=== PATIENT | female | born 1985 | race American Indian/Alaskan Native ===

== ENCOUNTER 2021-02-06 20:47 | Emergency (ER) | payer MEDICAID, OTHER ==
[2021-02-06] MEDS ORDERED: levETIRAcetam 1000 MG/NS 0.75% 1,000 MG/100 ML BAG IV NR (20:56)
[2021-02-06] MEDS ORDERED: SODIUM CHLORIDE 0.9% 1000 ML 1,000 ML IV ONE (20:56)
--- NOTE | 2021-02-06 20:57 | Emergency Department Report ---
ED General Adult HPI - General Chief complaint: Alcohol Stated complaint: alcohol PUI?: No Time Seen by Provider: 02/06/21 20:55 Source: patient, family Mode of arrival: Ambulatory Limitations: Other (Patient is intoxicated. Patient is incapacitated.) - History of Present Illness Initial comments: The patient is a 35-year-old female. She is not known to myself previously. She is brought to the hospital by a family member. Most of the history is obtained by speaking to her mother, Ms Jasmyne Zafar; [phone] As per her mother, the patient has a history of alcohol abuse and incapacitation. Patient may also have a history of seizure, the patient's mother is not for sure. The patient's mother reports to me that the patient presented to the mother's house today, initially with a complaint of side pain. Apparently, the patient may have had a seizure, it is unknown if the patient fell or hit her head. The mother brought the patient here to the emergency room for evaluation. In the car, the patient reportedly had another seizure or convulsive event, and was brought back to this emergency room immediately. When I evaluated the patient, the patient is awake, breathing spontaneously, with an appropriate Accu-Chek. She is protecting her airway. The patient smells of alcohol, and is incapacitated. She states that she has "autoimmune pain", but she cannot tell me if she fell or hit her head or neck. The patient is currently drunk, not able to describe the qualitative nature of symptoms, exacerbating factors, relieving factors or aggravating factors. Patient agitated, pulling off leads and trying to remove IV, and trying to move. The patient does not have decision-making capacity at this time, as she is intoxicated. I discussed this with the patient's mother. Patient's mother provided consent for physical and or chemical restraint if necessary. The patient is subsequently placed on 2012 by myself. While in the emergency room, patient also medicated with fluids, Keppra, and medicated with haloperidol. -: unknown - Related Data Previous Rx's Medication Instructions Recorded Last Taken Type Multivitamin with Folic Acid [[facility] 400 mcg PO QDAY #30 tablet 02/07/21 Unknown Rx One Daily Essential Tablet] Nitrofurantoin [place]/M-Cryst 100 mg PO Q12HR #14 capsule 02/07/21 Unknown Rx [Macrobid CAP] chlordiazePOXIDE [Librium] 25 mg PO Q6H PRN #25 capsule 02/07/21 Unknown Rx levETIRAcetam [Keppra TAB] 500 mg PO BID #60 tablet 02/07/21 Unknown Rx Allergies Allergy/AdvReac Type Severity Reaction Status Date / Time No Known Allergies Allergy Verified 02/06/21 21:30 ED Review of Systems ROS: Stated complaint: INTENSE PAIN Other details as noted in HPI Comment: Unobtainable due to pts medical conditions ED Past Medical Hx - Medications Home Medications: Home Medications Medication Instructions Recorded Confirmed Last Taken Type Multivitamin with Folic Acid [[facility] 400 mcg PO QDAY #30 tablet 02/07/21 Unknown Rx One Daily Essential Tablet] Nitrofurantoin [place]/M-Cryst 100 mg PO Q12HR #14 capsule 02/07/21 Unknown Rx [Macrobid CAP] chlordiazePOXIDE [Librium] 25 mg PO Q6H PRN #25 capsule 02/07/21 Unknown Rx levETIRAcetam [Keppra TAB] 500 mg PO BID #60 tablet 02/07/21 Unknown Rx ED Physical Exam - General Limitations: Altered Mental Status (The patient is intoxicated) General appearance: appears intoxicated - Head Head exam: Present: atraumatic, normocephalic - Eye Eye exam: Present: normal appearance, EOMI. Absent: nystagmus - ENT ENT exam: Present: normal exam, normal orophraynx, mucous membranes moist, normal external ear exam - Neck Neck exam: Present: normal inspection, full ROM. Absent: tenderness, meningismus - Respiratory Respiratory exam: Present: normal lung sounds bilaterally. Absent: respiratory distress, wheezes, rales, rhonchi, stridor, decreased breath sounds - Cardiovascular Cardiovascular Exam: Present: regular rate, normal rhythm, normal heart sounds. Absent: bradycardia, tachycardia, irregular rhythm, systolic murmur, diastolic murmur, rubs, gallop - GI/Abdominal GI/Abdominal exam: Present: soft. Absent: distended, tenderness, guarding, rebound, rigid, pulsatile mass - Extremities Exam Extremities exam: Present: normal inspection, full ROM, other (2+ pulses noted in the bilateral upper and lower extremities. There is no palpable cord. negative Homans sign. Muscular compartments are soft. The pelvis is stable.). Absent: pedal edema, calf tenderness - Back Exam Back exam: Present: normal inspection. Absent: tenderness, CVA tenderness (R), CVA tenderness (L), paraspinal tenderness, vertebral tenderness - Neurological Exam Neurological exam: Present: altered, abnormal gait (The patient walks with an unsteady gait), other (There is no facial droop. The tongue is midline. EOMI. 5 out of 5 strength in 4 extremities.) - Psychiatric Psychiatric exam: Present: agitated - Skin Skin exam: Present: warm, dry, intact, normal color. Absent: rash ED Course Vital Signs 02/06/21 02/06/21 02/06/21 21:52 22:19 22:20 Temperature Pulse Rate 91 H 99 H Respiratory 20 16 Rate Blood Pressure 109/65 Blood Pressure [Right] O2 Sat by Pulse 95 Oximetry 02/06/21 02/06/21 02/06/21 22:30 23:26 23:30 Temperature Pulse Rate 98 H 107 H Respiratory 13 26 H Rate Blood Pressure 119/94 Blood Pressure [Right] O2 Sat by Pulse 100 95 98 Oximetry 02/06/21 02/07/21 02/07/21 23:35 00:10 00:14 Temperature 97.9 F Pulse Rate 97 H 83 Respiratory 20 19 Rate Blood Pressure 92/61 92/61 Blood Pressure [Right] O2 Sat by Pulse 100 96 Oximetry 02/07/21 02/07/21 02/07/21 03:00 03:30 03:42 Temperature Pulse Rate 66 84 66 Respiratory 13 14 12 Rate Blood Pressure 87/59 87/59 87/59 Blood Pressure [Right] O2 Sat by Pulse Oximetry 02/07/21 02/07/21 02/07/21 03:48 04:30 04:40 Temperature Pulse Rate 74 80 85 Respiratory 13 12 13 Rate Blood Pressure 81/51 92/57 92/57 Blood Pressure [Right] O2 Sat by Pulse 97 100 Oximetry 02/07/21 07:00 Temperature Pulse Rate 94 H Respiratory 11 L Rate Blood Pressure Blood Pressure 93/57 [Right] O2 Sat by Pulse 98 Oximetry - Reevaluation(s) Reevaluation #1: 02/06/21 23:38 Differential diagnosis, including but not limited to: Intracranial injury, cervical spine injury, seizure, conversion disorder, electrolyte derangement, urinary tract infection, pneumonia, renal colic, constipation Assessment and plan: 35-year-old female, who has reassuring vital signs, but is floridly intoxicated, and lacks decision-making capacity. She reportedly had convulsions, and then immediately wakes up, but but is incoherent and nonsensical. The patient is placed on 2012 for alcohol intoxication, and lack of decision-making capacity. Her mother provided consent for chemical and/or physical restraint if necessary. Mother endorses that the patient does this quite often. The patient is not threatening homicidal or suicidal ideation, and she is now appropriately deescalated. Noncontrast CT scan of the brain, cervical spine, abdomen pelvis ordered. There is no abdominal tenderness, rebound or guarding. There is no abdominal ecchymosis. I think appendicitis is very unlikely. Continue supportive care, monitor for sobriety, reassess after diagnostics have resulted. Discussed this with the mother. She articulated understanding 02/07/21 00:[address] scan of the brain, cervical spine abdomen pelvis negative for acute findings. Pancreatic pseudocyst appreciated. Patient resting comfortably at this time in no acute distress. Reassess when clinically sober. I called patients mother to update her Discussed all findings with her. She articulated understanding care will transferred to the overnight provider to reassess and discharge when clinically sober 02/07/21 00:12 02/10/21 04:21 ED Medical Decision Making - Lab Data Result diagrams: 02/06/21 21:05 02/06/21 21:05 Vital Signs 02/06/21 02/06/21 02/06/21 21:52 22:19 22:20 Temperature Pulse Rate 91 H 99 H Respiratory 20 16 Rate Blood Pressure 109/65 O2 Sat by Pulse 95 Oximetry 02/06/21 02/06/21 02/06/21 22:30 23:26 23:30 Temperature Pulse Rate 98 H 107 H Respiratory 13 26 H Rate Blood Pressure 119/94 O2 Sat by Pulse 100 95 98 Oximetry 02/06/21 23:35 Temperature 97.9 F Pulse Rate Respiratory Rate Blood Pressure O2 Sat by Pulse Oximetry Lab Results 02/06/21 02/06/21 02/06/21 Range/Units 20:54 20:54 21:05 WBC 4.5 (4.5-11.0) K/mm3 RBC 3.52 L (3.65-5.03) M/mm3 Hgb 12.7 (10.1-14.3) gm/dl Hct 37.4 (30.3-42.9) % MCV 106 H (79-97) fl MCH 36 H (28-32) pg MCHC 34 (30-34) % RDW 15.5 H (13.2-15.2) % Plt Count 318 (140-440) K/mm3 Lymph % (Auto) 38.2 H (13.4-35.0) % [place] % (Auto) 11.3 H (0.0-7.3) % Eos % (Auto) 0.8 (0.0-4.3) % Baso % (Auto) 0.9 (0.0-1.8) % Lymph # (Auto) 1.7 (1.2-5.4) K/mm3 [place] # (Auto) 0.5 (0.0-0.8) K/mm3 Eos # (Auto) 0.0 (0.0-0.4) K/mm3 Baso # (Auto) 0.0 (0.0-0.1) K/mm3 Seg Neutrophils % 48.8 (40.0-70.0) % Seg Neutrophils # 2.2 (1.8-7.7) K/mm3 Sodium (137-145) mmol/L Potassium (3.6-5.0) mmol/L Chloride (98-107) mmol/L Carbon Dioxide (22-30) mmol/L Anion Gap mmol/L BUN (7-17) mg/dL Creatinine (0.6-1.2) mg/dL Estimated GFR ml/min BUN/Creatinine Ratio % Glucose (65-100) mg/dL Calcium (8.4-10.2) mg/dL Magnesium (1.7-2.3) mg/dL Total Bilirubin (0.1-1.2) mg/dL AST (5-40) units/L ALT (7-56) units/L Alkaline Phosphatase (35-129) units/L Total Creatine Kinase (30-135) units/L Total Protein (6.3-8.2) g/dL Albumin (3.9-5) g/dL Albumin/Globulin Ratio % HCG, Quant (0-4) mIU/mL Urine Color Yellow (Yellow) Urine Turbidity Slightly-cloudy (Clear) Urine pH 5.0 (5.0-7.0) Ur Specific [place] 1.010 (1.003-1.030) Urine Protein <15 mg/dl (Negative) mg/dL Urine Glucose (UA) Neg (Negative) mg/dL Urine Ketones Neg (Negative) mg/dL Urine Blood Mod (Negative) Urine Nitrite Pos (Negative) Urine Bilirubin Neg (Negative) Urine Urobilinogen < 2.0 (<2.0) mg/dL Ur Leukocyte Esterase Sm (Negative) Urine WBC (Auto) 9.0 H (0.0-6.0) /HPF Urine RBC (Auto) 2.0 (0.0-6.0) /HPF U Epithel Cells (Auto) 10.0 (0-13.0) /HPF Salicylates (2.8-20.0) mg/dL Urine Opiates Screen Negative Urine Methadone Screen Negative Acetaminophen (10.0-30.0) ug/mL Ur Barbiturates Screen Negative Ur Phencyclidine Scrn Negative Ur Amphetamines Screen Negative U Benzodiazepines Scrn Negative Urine Cocaine Screen Negative U Marijuana (THC) Screen Negative Drugs of Abuse Note Disclamer Plasma/Serum Alcohol (0-0.07) % 02/06/21 02/06/21 02/06/21 Range/Units 21:05 21:05 21:05 WBC (4.5-11.0) K/mm3 RBC (3.65-5.03) M/mm3 Hgb (10.1-14.3) gm/dl Hct (30.3-42.9) % MCV (79-97) fl MCH (28-32) pg MCHC (30-34) % RDW (13.2-15.2) % Plt Count (140-440) K/mm3 Lymph % (Auto) (13.4-35.0) % [place] % (Auto) (0.0-7.3) % Eos % (Auto) (0.0-4.3) % Baso % (Auto) (0.0-1.8) % Lymph # (Auto) (1.2-5.4) K/mm3 [place] # (Auto) (0.0-0.8) K/mm3 Eos # (Auto) (0.0-0.4) K/mm3 Baso # (Auto) (0.0-0.1) K/mm3 Seg Neutrophils % (40.0-70.0) % Seg Neutrophils # (1.8-7.7) K/mm3 Sodium 145 (137-145) mmol/L Potassium 5.0 (3.6-5.0) mmol/L Chloride 103.2 (98-107) mmol/L Carbon Dioxide 26 (22-30) mmol/L Anion Gap 21 mmol/L BUN 6 L (7-17) mg/dL Creatinine 0.5 L (0.6-1.2) mg/dL Estimated GFR > 60 ml/min BUN/Creatinine Ratio 12 % Glucose 104 H (65-100) mg/dL Calcium 9.3 (8.4-10.2) mg/dL Magnesium 2.00 (1.7-2.3) mg/dL Total Bilirubin 0.20 (0.1-1.2) mg/dL AST 88 H (5-40) units/L ALT 26 (7-56) units/L Alkaline Phosphatase 114 (35-129) units/L Total Creatine Kinase 113 (30-135) units/L Total Protein 7.9 (6.3-8.2) g/dL Albumin 4.4 (3.9-5) g/dL Albumin/Globulin Ratio 1.3 % HCG, Quant < 2 (0-4) mIU/mL Urine Color (Yellow) Urine Turbidity (Clear) Urine pH (5.0-7.0) Ur Specific [place] (1.003-1.030) Urine Protein (Negative) mg/dL Urine Glucose (UA) (Negative) mg/dL Urine Ketones (Negative) mg/dL Urine Blood (Negative) Urine Nitrite (Negative) Urine Bilirubin (Negative) Urine Urobilinogen (<2.0) mg/dL Ur Leukocyte Esterase (Negative) Urine WBC (Auto) (0.0-6.0) /HPF Urine RBC (Auto) (0.0-6.0) /HPF U Epithel Cells (Auto) (0-13.0) /HPF Salicylates < 0.3 L (2.8-20.0) mg/dL Urine Opiates Screen Urine Methadone Screen Acetaminophen (10.0-30.0) ug/mL Ur Barbiturates Screen Ur Phencyclidine Scrn Ur Amphetamines Screen U Benzodiazepines Scrn Urine Cocaine Screen U Marijuana (THC) Screen Drugs of Abuse Note Plasma/Serum Alcohol (0-0.07) % 02/06/21 02/06/21 Range/Units 21:05 21:05 WBC (4.5-11.0) K/mm3 RBC (3.65-5.03) M/mm3 Hgb (10.1-14.3) gm/dl Hct (30.3-42.9) % MCV (79-97) fl MCH (28-32) pg MCHC (30-34) % RDW (13.2-15.2) % Plt Count (140-440) K/mm3 Lymph % (Auto) (13.4-35.0) % [place] % (Auto) (0.0-7.3) % Eos % (Auto) (0.0-4.3) % Baso % (Auto) (0.0-1.8) % Lymph # (Auto) (1.2-5.4) K/mm3 [place] # (Auto) (0.0-0.8) K/mm3 Eos # (Auto) (0.0-0.4) K/mm3 Baso # (Auto) (0.0-0.1) K/mm3 Seg Neutrophils % (40.0-70.0) % Seg Neutrophils # (1.8-7.7) K/mm3 Sodium (137-145) mmol/L Potassium (3.6-5.0) mmol/L Chloride (98-107) mmol/L Carbon Dioxide (22-30) mmol/L Anion Gap mmol/L BUN (7-17) mg/dL Creatinine (0.6-1.2) mg/dL Estimated GFR ml/min BUN/Creatinine Ratio % Glucose (65-100) mg/dL Calcium (8.4-10.2) mg/dL Magnesium (1.7-2.3) mg/dL Total Bilirubin (0.1-1.2) mg/dL AST (5-40) units/L ALT (7-56) units/L Alkaline Phosphatase (35-129) units/L Total Creatine Kinase (30-135) units/L Total Protein (6.3-8.2) g/dL Albumin (3.9-5) g/dL Albumin/Globulin Ratio % HCG, Quant (0-4) mIU/mL Urine Color (Yellow) Urine Turbidity (Clear) Urine pH (5.0-7.0) Ur Specific [place] (1.003-1.030) Urine Protein (Negative) mg/dL Urine Glucose (UA) (Negative) mg/dL Urine Ketones (Negative) mg/dL Urine Blood (Negative) Urine Nitrite (Negative) Urine Bilirubin (Negative) Urine Urobilinogen (<2.0) mg/dL Ur Leukocyte Esterase (Negative) Urine WBC (Auto) (0.0-6.0) /HPF Urine RBC (Auto) (0.0-6.0) /HPF U Epithel Cells (Auto) (0-13.0) /HPF Salicylates (2.8-20.0) mg/dL Urine Opiates Screen Urine Methadone Screen Acetaminophen 5.0 L (10.0-30.0) ug/mL Ur Barbiturates Screen Ur Phencyclidine Scrn Ur Amphetamines Screen U Benzodiazepines Scrn Urine Cocaine Screen U Marijuana (THC) Screen Drugs of Abuse Note Plasma/Serum Alcohol 0.45 H (0-0.07) % - EKG Data -: EKG Interpreted by Ga EKG shows normal: sinus rhythm Rate: normal - EKG Data When compared to previous EKG there are: previous EKG unavailable 02/06/21 23:36 The EKG is interpreted at 21: 56 Sinus rhythm, 87 bpm. Normal axis, high left ventricular voltage, QTC 488 ms. Minimal motion artifact. Abnormal EKG. Not a STEMI. - Radiology Data Radiology results: pending, report reviewed, image reviewed CT HEAD WITHOUT CONTRAST INDICATION / CLINICAL INFORMATION: E.T.O.H. intoxication, Seizure. TECHNIQUE: All CT scans at this location are performed using CT dose reduction for ALARA by means of automated exposure control. C OMPARISON: None available. FINDINGS: HEMORRHAGE: None. EXTRA-AXIAL SPACES: Mildly prominent and greater than expected for age. VENTRICULAR SYSTEM: Normal in size and morphology for the patient's age. CEREBRAL PARENCHYMA: No significant abnormality. No acute territorial infarct. MIDLINE SHIFT / CLAUDIA IATION: None. CEREBELLUM / BRAINSTEM: No significant abnormality. ORBITS: Normal as visualized. SOFT TISSUES: No significant abnormality. SKULL: No significant abnormality. PARANASAL SINUSES / MASTOID AIR CELLS: Normal as visualized. ADDITIONAL FINDINGS: None. IMPRESSION: 1. No acute intracranial abnormality. 2. Mild cortical atrophy greater than expected for age. Signer Name: Randolph Allen MD Signed: 02/06/2021 10:25 PM Workstation Name: [id number] CT CERVICAL SPINE WITHOUT CONTRAST INDICATION / CLINICAL INFORMATION: E.T.O.H. intoxication, Seizure. TECHNIQUE: Axial CT images were obtained through the cervical spine. Sagittal and coronal reformatted images were produced. All CT scans at this location are performed using CT dose reduction for ALARA by means of automated exposure control. COMPARISON: None available. FINDINGS: VERTEBRAE: No significant abnormality. ALIGNMENT: No significant abnormality. DISC SPACES: No significant abnormality. FACET JOINTS: No significant abno rmality. CRANIOCERVICAL JUNCTION:No significant abnormality. SPINAL CANAL: No significant abnormality. PARASPINAL SOFT TISSUES: No significant abnormality. ADDITIONAL FINDINGS: None. LUNG APICES: No significant abnormality of visualized lungs. IMPRESSION: 1. No significant abnormality. Signer Name: Randolph Allen MD Signed: 02/06/2021 10:33 PM Workstation Name: [id number] CT ABDOMEN AND PELVIS WITHOUT CONTRAST INDICATION / CLINICAL INFORMATION: RIGHT sided flank pain. TECHNIQUE: Axial CT images were obtained through the abdomen and pelvis without IV contrast. All CT scans at this location are performed using CT dose reduction for ALARA by means of automated exposure control. KENIA RISON: None available. FINDINGS: LOWER CHEST: No significant abnormality. LIVER: Markedly hypodense characteristic of fatty infiltration, especially involving the left lobe. GALLBLADDER: No significant abnormality. BILE DUCTS: No significant abnormality. PANCREAS: No definite acute peripancreatic inflammation. Well-defined peripancreatic cyst located between the greater detail and stomach likely representing a pancreatic pseudocyst measuring 6.4 x 4.5 x 4.8 cm. SPLEEN: No significant abnormality. ADRENALS: No significant abnormality. RIGHT KIDNEY / URETER: No significant abnormality. LEFT KIDNEY / URETER: No significant abnormality. STOMACH / SMALL BOWEL: No significant abnormality. COLON: Diverticulosis without acute inflammation. APPENDIX: No significant abnormality. PERITONEUM: Small amount of free fluid in the pelvis. No free air. No fluid collection. LYMPH NODES: No significant adenopathy. AORTA / ARTERIES: No significant abnormality. IVC / VEINS: No significant abnormality. URINARY BLADDER: No significant abnormality. REPRODUCTIVE ORGANS: No significant abnormality. ADDITIONAL FINDINGS: None. SKELETAL SYSTEM: No significant abnormality. IMPRESSION: 1. No inflammatory process or bowel obstruction. 2. No urinary tract calculi or hydronephrosis. 3. Pancreatic pseudocyst but no CT evidence for acute pancreatitis. 4. Marked hepatic steatosis. Signer Name: Randolph Allen MD Signed: 02/06/2021 10:40 PM Workstation Name: [id number] Critical Care Time: Yes Critical care time in (mins) excluding proc time.: 35 Critical care attestation.: If time is entered above; I have spent that time in minutes in the direct care of this critically ill patient, excluding procedure time. ED Disposition Clinical Impression: Alcohol intoxication, Pyuria, Convulsion, Right sided abdominal pain, Hepatic steatosis, Pancreatic pseudocyst Disposition: HOME / SELF CARE / HOMELESS Is pt being admited?: No Does the pt Need Aspirin: No Condition: Good Instructions: Binge-Drinking Information, Adult, Fatty Liver Disease, Seizure, Adult, [id number] Additional Instructions: Recommend that patient not drive or operate motor vehicles for the next 6 months, or until cleared to do so by her primary care doctor. Recommend that patient discontinue consumption of alcohol. Recommend that patient follow-up with an outpatient primary care doctor within the next 3 to 5 days for repeat checkup and evaluation. Long-term consumption of alcohol may cause multiorgan failure and damage. Take the medications as directed. Please return to the emergency room right away with new pain, worsened pain, migration of pain, projectile vomiting, change in mental status, confusion, inability tolerate liquid feeds, new, worsened or different symptoms not present on the initial emergency room evaluation. Please follow-up with your primary care doctor or neurologist within the next 3 to 5 days for repeat checkup/evaluation. Prescriptions: Multivitamin with Folic Acid [[facility] One Daily Essential Tablet] 400 mcg PO QDAY #30 tablet levETIRAcetam [Keppra TAB] 500 mg PO BID #60 tablet chlordiazePOXIDE [Librium] 25 mg PO Q6H PRN #25 capsule PRN Reason: Alcohol Withdrawal Nitrofurantoin [place]/M-Cryst [Macrobid CAP] 100 mg PO Q12HR #14 capsule Referrals: JILLIAN TERRY MD [Primary Care Provider] - 3-5 Days SAMANTHA PARRA MD [Referring] - 3-5 Days
[2021-02-06 21:15] LABS: Bilirubin,Urine NEG (Negative); Blood,Urine MOD (Negative); Color,Urine Yellow (Yellow); Protein,Urine <15 mg/dL mg/dL (Negative); Urobilinogen,Urine < 2.0 mg/dL (<2.0)
[2021-02-06 21:20] LABS: Amphetamine Screen,Urine Negative; Benzodiazepines Screen,Urine Negative; Cannabinoid Screen,Urine Negative; Cocaine Screen,Urine Negative; Methadone Screen,Urine Negative; Opiate Screen,Urine Negative
[2021-02-06 21:27] LABS: Basophils % (Auto) 0.9 % (0.0-1.8); Eosinophils % (Auto) 0.8 % (0.0-4.3); Hematocrit 37.4 % (30.3-42.9); Hemoglobin 12.7 gm/dl (10.1-14.3); Lymphocytes # (Auto) 1.7 K/mm3 (1.2-5.4); Lymphocytes % (Auto) 38.2 % (13.4-35.0); Mean Corpuscular HGB Conc 34 % (30-34); Mean Corpuscular Volume 106 fl (79-97); Monocytes # (Auto) 0.5 K/mm3 (0.0-0.8); Monocytes % (Auto) 11.3 % (0.0-7.3); Platelet Count 318 K/mm3 (140-440); Red Blood Count 3.52 M/mm3 (3.65-5.03); Red Cell Distribution Width 15.5 % (13.2-15.2)
[2021-02-06] MEDS ORDERED: SODIUM CHLORIDE 0.9% 1000 ML 1,000 ML ONE (21:32)
[2021-02-06 21:43] LABS: Alanine Aminotransferase 26 units/L (7-56); Albumin 4.4 g/dL (3.9-5); Blood Urea Nitrogen 6 mg/dL (7-17); Calcium 9.3 mg/dL (8.4-10.2); Hemolysis Index 16
[2021-02-06 21:50] LABS: BUN/Creatinine Ratio 12
[2021-02-06] MEDS ORDERED: LORazepam 2 MG/ML VIAL ONE (22:13)
[2021-02-06] MEDS ORDERED: THIAMINE 100 MG, FOLIC ACID 1 MG, MULTIPLE VITAMIN INJ, ADULT 10 ML in SODIUM CHLORIDE ... IV ONE (22:15)
[2021-02-06] MEDS ORDERED: HALOPERIDOL LACTATE 5 MG/1 ML INJ IM STA (22:28)
--- NOTE | 2021-02-06 23:29 | Cat Scan Report ---
CT HEAD WITHOUT CONTRAST INDICATION / CLINICAL INFORMATION: E.T.O.H. intoxication, Seizure. TECHNIQUE: All CT scans at this location are performed using CT dose reduction for ALARA by means of automated exposure control. COMPARISON: None available. FINDINGS: HEMORRHAGE: None. EXTRA-AXIAL SPACES: Mildly prominent and greater than expected for age. VENTRICULAR SYSTEM: Normal in size and morphology for the patient's age. CEREBRAL PARENCHYMA: No significant abnormality. No acute territorial infarct. MIDLINE SHIFT / HERNIATION: None. CEREBELLUM / BRAINSTEM: No significant abnormality. ORBITS: Normal as visualized. SOFT TISSUES: No significant abnormality. SKULL: No significant abnormality. PARANASAL SINUSES / MASTOID AIR CELLS: Normal as visualized. ADDITIONAL FINDINGS: None. IMPRESSION: 1. No acute intracranial abnormality. 2. Mild cortical atrophy greater than expected for age. Signer Name: Randolph Allen MD Signed: 02/06/2021 11:25 PM Workstation Name: [id number]
[2021-02-06] MEDS ORDERED: ACETAMINOPHEN 325 MG TAB PO PRN (23:31)
[2021-02-06] MEDS ORDERED: DEXTROSE 50% IN WATER (25GM) 50 ML SYRINGE IV PRN (23:31)
[2021-02-06] MEDS ORDERED: ONDANSETRON 4 MG ODT TAB PO PRN (23:31)
--- NOTE | 2021-02-06 23:37 | Cat Scan Report ---
CT CERVICAL SPINE WITHOUT CONTRAST INDICATION / CLINICAL INFORMATION: E.T.O.H. intoxication, Seizure. TECHNIQUE: Axial CT images were obtained through the cervical spine. Sagittal and coronal reformatted images were produced. All CT scans at this location are performed using CT dose reduction for ALARA by means of automated exposure control. COMPARISON: None available. FINDINGS: VERTEBRAE: No significant abnormality. ALIGNMENT: No significant abnormality. DISC SPACES: No significant abnormality. FACET JOINTS: No significant abnormality. CRANIOCERVICAL JUNCTION:No significant abnormality. SPINAL CANAL: No significant abnormality. PARASPINAL SOFT TISSUES: No significant abnormality. ADDITIONAL FINDINGS: None. LUNG APICES: No significant abnormality of visualized lungs. IMPRESSION: 1. No significant abnormality. Signer Name: Randolph Allen MD Signed: 02/06/2021 11:33 PM Workstation Name: [id number]
--- NOTE | 2021-02-06 23:40 | XRay Report ---
CHEST 1 VIEW 02/06/2021 10:34 PM INDICATION / CLINICAL INFORMATION: seizure. COMPARISON: None available. FINDINGS: SUPPORT DEVICES: None. HEART / MEDIASTINUM: No significant abnormality. LUNGS / PLEURA: No significant pulmonary or pleural abnormality. No pneumothorax. ADDITIONAL FINDINGS: No significant additional findings. IMPRESSION: 1. No acute findings. Signer Name: Randolph Allen MD Signed: 02/06/2021 11:36 PM Workstation Name: [id number]
--- NOTE | 2021-02-06 23:44 | Cat Scan Report ---
CT ABDOMEN AND PELVIS WITHOUT CONTRAST INDICATION / CLINICAL INFORMATION: RIGHT sided flank pain. TECHNIQUE: Axial CT images were obtained through the abdomen and pelvis without IV contrast. All CT scans at this location are performed using CT dose reduction for ALARA by means of automated exposure control. COMPARISON: None available. FINDINGS: LOWER CHEST: No significant abnormality. LIVER: Markedly hypodense characteristic of fatty infiltration, especially involving the left lobe. GALLBLADDER: No significant abnormality. BILE DUCTS: No significant abnormality. PANCREAS: No definite acute peripancreatic inflammation. Well-defined peripancreatic cyst located bet ween the greater detail and stomach likely representing a pancreatic pseudocyst measuring 6.4 x 4.5 x 4.8 cm. SPLEEN: No significant abnormality. ADRENALS: No significant abnormality. RIGHT KIDNEY / URETER: No significant abnormality. LEFT KIDNEY / URETER: No significant abnormality. STOMACH / SMALL BOWEL: No significant abnormality. COLON: Diverticulosis without acute inflammation. APPENDIX: No significant abnormality. PERITONEUM: Small amount of free fluid in the pelvis. No free air. No fluid collection. LYMPH NODES: No significant adenopathy. AORTA / ARTERIES: No significant abnormality. IVC / VEINS: No significant abnormality. URINARY BLADDER: No significant abnormality. REPRODUCTIVE ORGANS: No significant abnormality. ADDITIONAL FINDINGS: None. SKELETAL SYSTEM: No significant abnormality. IMPRESSION: 1. No inflammatory process or bowel obstruction. 2. No urinary tract calculi or hydronephrosis. 3. Pancreatic pseudocyst but no CT evidence for acute pancreatitis. 4. Marked hepatic steatosis. Signer Name: Randolph Allen MD Signed: 02/06/2021 11:40 PM Workstation Name: [id number]
[2021-02-07 07:02] VITALS: BP 93/57
[2021-02-07] MEDS ORDERED: NITROFURANTOIN MONOHYD/M-CRYST 100 MG CAP PO SCH (10:00)
--- NOTE | 2021-02-07 13:30 | Electrocardiograph Report ---
[facility] Test Date: 2021-02-06 Test Time: 21:56:55 Pat Name: SARAH RAHMAN Department: Room: Gender: F Extruding Machine Operator: TARAH : 1985 Requested By: JAIDA WHELAN Order Number: [id number] Reading MD: Gonzalo Taylor Measurements Intervals [place] Rate: 87 P: 71 TN: 140 QRS: 74 QRSD: 97 T: 63 QT: 405 QTc: 488 Interpretive Statements Sinus rhythm Early repolarization ST changes No previous ECG available for comparison Electronically Signed On 02-07-2021 13:30:19 EST by Gonzalo Taylor
== END 2021-02-07 08:12 | disposition home or self-care (01) ==
LOC: ED 20:47
DX: F10.129 Alcohol abuse with intoxication, unspecified (principal); R35.89 Other polyuria; R56.9 Unspecified convulsions; K76.0 Fatty (change of) liver, not elsewhere classified; K70.9 Alcoholic liver disease, unspecified; K86.3 Pseudocyst of pancreas; Y90.9 Presence of alcohol in blood, level not specified
CPT/HCPCS: 36415; 70450; 71045; 72125; 74176; 80053; 80307; 81001; 82550; 83735; 84702; 85025; 87086; 93005; 96361; 96365; 96366; 96372; 96375; 99284; J1630; J1953; J3411; J7030; 80320; G0480; J2060